=== PATIENT | female | born 1990 | race Caucasian/White ===

== ENCOUNTER 2018-10-05 06:13 | Emergency (ER) | payer OTHER ==
[~2018-10-05] VITALS: Ht 170.2 cm; Wt 96.2 kg
--- NOTE | 2018-10-05 06:13 | NUR ---
Patient BIBA BLS, transferred to bed 10. RN evaluating patient at bedside.
[2018-10-05 06:17] VITALS: BP 111/89
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
[2018-10-05] MEDS ORDERED: KETOROLAC 30 MG/ML VIAL IVP ONE (06:35)
[2018-10-05] MEDS ORDERED: NACL 0.9% 500 ML IV ONE (06:35)
[2018-10-05] MEDS ORDERED: BACITRACIN OINT 500 UNITS/GM PKT TP ONE (06:35)
[2018-10-05] MEDS ORDERED: MORPHINE SULFATE 4 MG/ML SYR IVP ONE (06:40)
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
[2018-10-05 07:05] VITALS: BP 111/89
== END 2018-10-05 07:06 | disposition home or self-care (01) ==
LOC: MED 06:13
DX: T25.222A Burn of second degree of left foot, initial encounter (principal); Z88.0 Allergy status to penicillin; Z88.1 Allergy status to other antibiotic agents; X10.0XXA Contact with hot drinks, initial encounter; Y93.89 Activity, other specified; Y92.89 Other specified places as the place of occurrence of the external cause; Y99.8 Other external cause status
CPT/HCPCS: 16020; 90471; 90715; 96374; 99284; J1885; J2270; 96375; J7030